=== PATIENT | female | born 1995 | race Caucasian/White ===

== ENCOUNTER 2019-10-01 14:20 | Emergency (ER) | payer OTHER ==
[~2019-10-01] VITALS: Ht 170.2 cm; Wt 47.6 kg
[2019-10-01 14:39] VITALS: BP 102/56
--- NOTE | 2019-10-01 15:01 | Emergency Room Report ---
History of Present Illness General Chief Complaint: Lower Extremity Injury Source: Patient Present Illness HPI 24-year-old female with history of warts on her feet here complaining of increased pain and pus drainage from the site of 1 of the warts after she applied a cream. Patient reports that she is from [facility] and has been staying in [place] for the past 8 months. Brought a cream for warts with her from [place]. Has not established a primary care provider here. Obvious infection of the right medial toe noted. Minimal pus drainage noted. I did not see any ingrown toenail. Patient denies any fever and chills. Has not taken medication for symptom relief. Denies . Denies chest pain, shortness of breath, cough or congestion at this time. Allergies: Coded Allergies: No Known Allergies (Unverified , 10/01/19) COVID-19 Screening Contact w/high risk pt: No Recent Travel to affected area: No Experienced COVID-19 symptoms?: No Patient History Past Medical History: see triage record Past Surgical History: none Pertinent Family History: none Last Menstrual Period: 09/28/2019 Now: No Immunizations: UTD Reviewed Nursing Documentation: PMH: Agreed; PSxH: Agreed Nursing Documentation-PMH Past Medical History: No Stated History Review of Systems All Other Systems: negative except mentioned in HPI Physical Exam Vital Signs Date Time Temp Pulse Resp B/P (MAP) Pulse Ox O2 Delivery O2 Flow Rate FiO2 10/01/19 14:39 98.6 71 20 102/56 (71) 98 Room Air Sp02 EP Interpretation: reviewed, normal General Appearance: no apparent distress, alert, GCS 15, non-toxic Head: normocephalic, atraumatic Eyes: bilateral eye normal inspection, bilateral eye PERRL ENT: hearing grossly normal, normal pharynx, no angioedema, normal voice Neck: full range of motion, supple/symm/no masses Respiratory: chest non-tender, lungs clear, normal breath sounds, no rhonchi, no wheezing, speaking full sentences Cardiovascular #1: regular rate, rhythm, no edema, no murmur Gastrointestinal: normal bowel sounds, non tender, soft, non-distended, no guarding, no rebound Rectal: deferred Genitourinary: no CVA tenderness Musculoskeletal: back normal Neurologic: alert, motor strength/tone normal, oriented x3, sensory intact, responsive, speech normal Psychiatric: judgement/insight normal, memory normal, mood/affect normal, no suicidal/homicidal ideation Skin: other - infected toe medial site at site of foot wart Lymphatic: no adenopathy Medical Decision Making PA Attestation All my diagnosis and treatment plans were reviewed ad discussed with my supervising physician Dr. Phillips Diagnostic Impression: Primary Impression: Toe infection Additional Impression: Warts of foot ER Course 24-year-old female with history of warts on her feet here complaining of increased pain and pus drainage from the site of 1 of the warts after she applied a cream. Patient reports that she is from [facility] and has been staying in [place] for the past 8 months. Brought a cream for warts with her from [place]. Has not established a primary care provider here. Obvious infection of the right medial toe noted. Minimal pus drainage noted. I did not see any ingrown toenail. Patient denies any fever and chills. Has not taken medication for symptom relief. Denies . Denies chest pain, shortness of breath, cough or congestion at this time. Ddx considered but are not limited to: Eczema, scabies, lice, foot warts, ingrown toenail, toe infection Vital signs: are WNL, pt. is afebrile H&PE are most consistent with: To infection, foot warts ORDERS: Keflex, ibuprofen ED INTERVENTIONS: None required at this time. DISCHARGE: At this time pt. is stable for d/c to home. Will provide printed patient care instructions, and any necessary prescriptions. Care plan and follow up instructions have been discussed with the patient prior to discharge. Gave a list of free clinics for patient to establish a primary doctor for referral to horticultural technical officer. At this time patient needs freezing of the warts and she has diffuse wart presentation on right foot. If worsening symptom return to the emergency room Patient was evaluated in the context of the global COVID-19 pandemic, which necessitated consideration that the patient might be at risk for infection with the SARS-COV-2 virus that causes COVID-19. Institutional protocols and algorithms that pertain to the evaluation of patients at risk for COVID-19 are in a state of rapid change based on information relieved by multiple regulatory bodies including the CDC and the federal and state organizations. These policies and algorithms were followed during the patient's care in the ED. Last Vital Signs Date Time Temp Pulse Resp B/P (MAP) Pulse Ox O2 Delivery O2 Flow Rate FiO2 10/01/19 14:39 98.6 71 20 102/56 (71) 98 Room Air Disposition: HOME, SELF-CARE Condition: Stable Scripts Ibuprofen* (MOTRIN*) 600 Mg Tablet 600 MG ORAL Q6H PRN for For Pain, #30 TAB 0 Refills Prov: Van Lentz 10/01/19 Cephalexin* (KEFLEX*) 500 Mg Capsule 500 MG ORAL EVERY 6 HOURS for 7 Days, #28 CAP Prov: Van Lentz 10/01/19 Patient Instructions: Warkennedi, [id number] Additional Instructions: Follow-up with a horticultural technical officer, take medication as directed, if worsening symptoms return to the emergency room Van Lentz Oct 01, 2019 15:01
[2019-10-01] MEDS ORDERED: CEPHALEXIN500 MG ORAL (15:03)
[2019-10-01] MEDS ORDERED: IBUPROFEN600 M1 ORAL (15:03)
== END 2019-10-01 15:14 | disposition home or self-care (01) ==
LOC: EMR 14:50
DX: B07.9 Viral wart, unspecified (principal); B99.8 Other infectious disease
CPT/HCPCS: 99282